=== PATIENT | male | born 1935 | race Caucasian/White ===

== ENCOUNTER → 2018-12-23 | Outpatient (CLI) | payer OTHER | LOC: FIMAGING 10:22 ==

== ENCOUNTER → 2018-12-30 | Outpatient (CLI) | payer OTHER ==
[~2018-12-30] MED LIST: IOPAMIDOL (ISOVUE-300) 100 ML BTL ONE
== END ==
LOC: FIMAGING 10:20
PROVIDERS: ATTEND Internal Medicine
DX: R22.2 Localized swelling, mass and lump, trunk (principal)
CPT/HCPCS: 71260; Q9967

== ENCOUNTER 2019-01-07 06:16 | Day surgery (SDC) | payer OTHER | END 2019-01-07 09:24 | disposition home or self-care (01) | LOC: FSGY 06:16 ==

== ENCOUNTER 2019-02-04 10:01 | Day surgery (SDC) | payer OTHER | END 2019-02-04 13:45 | disposition home or self-care (01) | LOC: FIMAGING 10:01 ==